=== PATIENT | male | born 1970 | race Caucasian/White ===

== ENCOUNTER 2017-08-09 10:48 | Emergency (ER) | payer OTHER ==
[~2017-08-09] VITALS: Ht 182.9 cm; Wt 79.4 kg
[2017-08-09 10:54] VITALS: BP 144/65
== END 2017-08-09 12:07 | disposition home or self-care (01) ==
LOC: ER 10:49
DX: B02.29 Other postherpetic nervous system involvement (principal)
CPT/HCPCS: 99283; A4606; Z7610

== ENCOUNTER → 2018-04-03 | Emergency (ER) | payer OTHER ==
[~2018-04-03] VITALS: Ht 190.5 cm; Wt 94.8 kg
[~2018-04-03] MED LIST: oxyCODONE/APAP (5/325 MG) 1 UDTAB TABLET ONE; oxyCODONE/APAP (5/325 MG) 1 UDTAB TABLET PO ONE
--- NOTE | 2018-04-03 09:53 | NUR ---
PT ALERT ORINETED X 4 WITH C/C OF HEADACHE IN FRONTAL REGION STARTING YESTERDAY AROUND 10:30 NO NOTED EAKNESS EXHIBITED WILL CONTINUE TO MONITOR
--- NOTE | 2018-04-03 10:18 | NUR ---
PT BACK FROM CT SCAN
[2018-04-03 10:26] VITALS: BP 125/76
--- NOTE | 2018-04-03 10:27 | NUR ---
PT DISCHARGED TO HOME WITH ACI AND PRESCRIPTION
== END | disposition home or self-care (01) ==
LOC: ER 09:42
DX: J06.9 Acute upper respiratory infection, unspecified (principal); R51 Headache
CPT/HCPCS: 70450-TC; A4606; Z7610

== ENCOUNTER 2019-05-09 14:16 | Emergency (ER) | payer OTHER ==
[~2019-05-09] VITALS: Ht 182.9 cm; Wt 93.0 kg
[2019-05-09 14:44] VITALS: BP 134/84
[2019-05-09] MEDS ORDERED: DEXAMETHASONE 4 MG TABLET ONE (15:15)
[2019-05-09] MEDS ORDERED: DEXAMETHASONE 1 MG TABLET PO ONE (15:30)
== END 2019-05-09 15:22 | disposition home or self-care (01) ==
LOC: ER 14:18
DX: J06.9 Acute upper respiratory infection, unspecified (principal)
CPT/HCPCS: 99282; J8540

== ENCOUNTER 2020-08-13 09:43 | Emergency (ER) | payer OTHER ==
[~2020-08-13] VITALS: Ht 177.8 cm; Wt 100.2 kg
--- NOTE | 2020-08-13 09:50 | NUR ---
BIBS FOR C/O PRESSURE TO BOTH EARS, LUE NUMBNESS X TODAY. CONCERN ABOUT B/P HIGH SINCE YESTERDAY. ALERT AND ORIENTED X4. DENIES PAIN. IN ROOM AIR AND DENIES SOB. ATTACHED TO A MONITOR. WILL CONTINUE TO MONITOR THE PATIENT.
[2020-08-13 10:08] LABS: BASOPHILS # (AUTO) 0.1 /CMM (0.0-0.2); BASOPHILS % (AUTO) 0.8 % (0.0-2.0); EOSINOPHILS % (AUTO) 1.6 % (0.0-6.0); HEMATOCRIT 42 % (39-51); HEMOGLOBIN 14.5 g/dL (13.5-17.5); LYMPHOCYTES # (AUTO) 2.1 /CMM (0.8-4.8); LYMPHOCYTES % (AUTO) 32.9 % (20.0-44.0); MEAN CORPUSCULAR HGB CONC 34 g/dl (31.0-36.0); MEAN CORPUSCULAR VOLUME 86 fL (80-96); MONOCYTES # (AUTO) 0.5 /CMM (0.1-1.30); MONOCYTES % (AUTO) 7.2 % (2.0-12.0); NEUTROPHILS # (AUTO) 3.7 /CMM (1.8-8.9); NEUTROPHILS % (AUTO) 57.5 % (43.0-81.0); PLATELET COUNT (AUTO) 256 /CMM (150-450); RED BLOOD CELL COUNT(AUTO) 4.92 MIL/uL (4.5-6.0); WHITE BLOOD COUNT (AUTO) 6.5 K/uL (4.3-11.0)
[2020-08-13 10:16] LABS: CALCIUM, SERUM 8.9 mg/dL (8.5-10.1); CARBON DIOXIDE 26 mmol/L (21-32); CHLORIDE 106 mmol/L (98-107); CREATININE 1.3 mg/dL (0.6-1.3); GLUCOSE 94 mg/dL (74-106); POTASSIUM 3.9 mmol/L (3.5-5.1); SODIUM SERUM 142 mmol/L (136-145); UREA NITROGEN, BLOOD 14 mg/dL (7-18)
--- NOTE | 2020-08-13 10:49 | NUR ---
Patient discharged to home in stable condition. Written and verbal after care instructions given. Patient verbalizes understanding of instruction. The patient left ER in stable condition.
[2020-08-13 10:50] VITALS: BP 133/75
== END 2020-08-13 10:50 | disposition home or self-care (01) ==
LOC: ER 09:44
DX: I10 Essential (primary) hypertension (principal); R51.9 Headache, unspecified
CPT/HCPCS: 36415; 70450-TC; 71045-TC; 80048-TC; 84484-TC; 85025-TC

== ENCOUNTER 2020-08-21 11:24 | Emergency (ER) | payer OTHER ==
[~2020-08-21] VITALS: Ht 188 cm; Wt 97.5 kg
--- NOTE | 2020-08-21 11:30 | NUR ---
patient came in to the er c/o JOCELYNE/elbow, and left rib pain x 2 days s/p playing tennis, took motrin but no relief. on room air, breathing evenly and unlabored. Kept comfortable, will continue to monitor accordingly.
[2020-08-21 12:52] VITALS: BP 118/71
--- NOTE | 2020-08-21 12:52 | NUR ---
Patient discharged to home in stable condition. Written and verbal after care instructions given. Patient verbalizes understanding of instruction.
== END 2020-08-21 12:52 | disposition home or self-care (01) ==
LOC: ER 11:40
DX: S29.012A Strain of muscle and tendon of back wall of thorax, initial encounter (principal); I10 Essential (primary) hypertension; X58.XXXA Exposure to other specified factors, initial encounter; Y93.69 Activity, other involving other sports and athletics played as a team or group; Y92.89 Other specified places as the place of occurrence of the external cause; Y99.8 Other external cause status
CPT/HCPCS: 71100-TC

== ENCOUNTER 2021-01-07 14:21 | Emergency (ER) | payer OTHER ==
[~2021-01-07] VITALS: Ht 190.5 cm; Wt 95.3 kg
--- NOTE | 2021-01-07 14:44 | NUR ---
AT BEDSIDE FOR EVAL.
--- NOTE | 2021-01-07 14:45 | NUR ---
PATIENT HERE FOR C/O CHEST PAIN, NON-RADIATING, PS 6/10 SINCE LAST NIGHT. PATIENT ALERT AND ORIENTED X4. NO RESPIRATORY DISTRESS NOTED. RESPIRATIONS EVEN AND UNLABORED. AWAITING MD CARRANZA
[2021-01-07] MEDS ORDERED: ASPIRIN 325 MG TABLET ONE (15:00)
[2021-01-07] MEDS ORDERED: ASPIRIN 325 MG TABLET PO ONE (15:00)
[2021-01-07 15:09] LABS: EOSINOPHILS % (AUTO) 0.5 % (0.0-6.0); HEMATOCRIT 40 % (39-51); HEMOGLOBIN 13.8 g/dL (13.5-17.5); LYMPHOCYTES # (AUTO) 1.8 K/uL (0.8-4.8); LYMPHOCYTES % (AUTO) 41.8 % (20.0-44.0); MEAN CORPUSCULAR HGB CONC 35 g/dl (31.0-36.0); MEAN CORPUSCULAR VOLUME 87 fL (80-96); MONOCYTES # (AUTO) 0.3 K/uL (0.1-1.30); MONOCYTES % (AUTO) 7.5 % (2.0-12.0); NEUTROPHILS # (AUTO) 2.1 K/uL (1.8-8.9); NEUTROPHILS % (AUTO) 49.2 % (43.0-81.0); PLATELET COUNT (AUTO) 259 K/uL (150-450); RED BLOOD CELL COUNT(AUTO) 4.59 MIL/uL (4.5-6.0); WHITE BLOOD COUNT (AUTO) 4.3 K/uL (4.3-11.0)
[2021-01-07 15:38] LABS: ALANINE AMINOTRANSFERASE 33 U/L (12-78); ALBUMIN 4.2 g/dL (3.4-5.0); ALKALINE PHOSPHATASE 59 U/L (46-116); ASPARTATE AMINOTRANSFERASE 23 U/L (15-37); BILIRUBIN,DIRECT 0.2 mg/dL (0.0-0.2); BILIRUBIN,TOTAL 1.3 mg/dL (0.2-1.0); CALCIUM, SERUM 8.7 mg/dL (8.5-10.1); CARBON DIOXIDE 23 mmol/L (21-32); CHLORIDE 105 mmol/L (98-107); CREATININE 1.2 mg/dL (0.6-1.3); GLUCOSE 93 mg/dL (74-106); POTASSIUM 4.3 mmol/L (3.5-5.1); SODIUM SERUM 139 mmol/L (136-145); TOTAL PROTEIN, SERUM 7.9 g/dL (6.4-8.2); UREA NITROGEN, BLOOD 20 mg/dL (7-18)
--- NOTE | 2021-01-07 18:32 | NUR ---
PATIENT A/OX4, BREATHING EVEN AND UNLABORED, DENIES PAIN AT THIS TIME. IV removed. Catheter intact and site benign. Pressure and 4x4 applied to site. No bleeding noted.Patient discharged to home in stable condition. Written and verbal after care instructions given. Patient verbalizes understanding of instruction.
[2021-01-07 18:33] VITALS: BP 121/73
--- NOTE | 2021-01-07 18:33 | NUR ---
IV removed. Catheter intact and site benign. Pressure and 4x4 applied to site. No bleeding noted. Patient discharged to home in stable condition. Written and verbal after care instructions given. Patient verbalizes understanding of instruction.
== END 2021-01-07 18:33 | disposition home or self-care (01) ==
LOC: ER 14:25
DX: R07.89 Other chest pain (principal); I10 Essential (primary) hypertension; E78.5 Hyperlipidemia, unspecified
CPT/HCPCS: 36415; 71045-TC; 80048-TC; 80076-TC; 83880; 84484-TC; 85025-TC

== ENCOUNTER 2021-04-13 22:49 | Emergency (ER) | payer OTHER ==
[~2021-04-13] VITALS: Ht 190.5 cm; Wt 95.7 kg
[2021-04-13 23:02] VITALS: BP 161/87
--- NOTE | 2021-04-13 23:15 | NUR ---
PT REFUSING CARDIAC WORKUP. REFUSING CHEST XRAY AND EKG. ER MD AWARE.
[2021-04-13] MEDS ORDERED: DEXAMETHASONE 1 MG TABLET ONE (23:52)
[2021-04-13] MEDS ORDERED: DEXAMETHASONE 4 MG TABLET ONE (23:53)
[2021-04-14] MEDS ORDERED: DEXAMETHASONE SOLN 5 MG/5 ML UDC PO ONE
== END 2021-04-13 23:58 | disposition home or self-care (01) ==
LOC: ER 22:54
DX: R07.89 Other chest pain (principal); R05.9 Cough, unspecified; I10 Essential (primary) hypertension
CPT/HCPCS: 99283; J8540 ×2

== ENCOUNTER 2022-07-04 13:49 | Emergency (ER) | payer OTHER ==
[~2022-07-04] VITALS: Ht 188 cm; Wt 97.1 kg
--- NOTE | 2022-07-04 14:00 | NUR ---
for 2 day no n/v noted received pt 52 yrs male came from home c/o epgastic pain
--- NOTE | 2022-07-04 14:15 | NUR ---
BLood DROW BY LAB tach
[2022-07-04 14:29] LABS: BASOPHILS % (AUTO) 0.8 % (0.0-2.0); EOSINOPHILS % (AUTO) 1.2 % (0.0-6.0); HEMATOCRIT 41 % (39-51); HEMOGLOBIN 13.9 g/dL (13.5-17.5); LYMPHOCYTES # (AUTO) 1.7 K/uL (0.8-4.8); LYMPHOCYTES % (AUTO) 39.5 % (20.0-44.0); MEAN CORPUSCULAR HGB CONC 34 g/dl (31.0-36.0); MEAN CORPUSCULAR VOLUME 86 fL (80-96); MONOCYTES # (AUTO) 0.4 K/uL (0.1-1.30); MONOCYTES % (AUTO) 8.3 % (2.0-12.0); NEUTROPHILS # (AUTO) 2.1 K/uL (1.8-8.9); NEUTROPHILS % (AUTO) 50.2 % (43.0-81.0); PLATELET COUNT (AUTO) 285 K/uL (150-450); RED BLOOD CELL COUNT(AUTO) 4.79 MIL/uL (4.5-6.0); WHITE BLOOD COUNT (AUTO) 4.3 K/uL (4.3-11.0)
--- NOTE | 2022-07-04 14:50 | NUR ---
TO ct scan OF ABDOMINE
[2022-07-04 14:55] LABS: CREATININE 1.1 mg/dL (0.6-1.3); POTASSIUM 4.5 mmol/L (3.5-5.1)
[2022-07-04 15:01] LABS: ALBUMIN 4.3 g/dL (3.4-5.0); BILIRUBIN,DIRECT 0.2 mg/dL (0.0-0.2); BILIRUBIN,TOTAL 1.2 mg/dL (0.2-1.0); TOTAL PROTEIN, SERUM 7.7 g/dL (6.4-8.2)
[2022-07-04] MEDS ORDERED: IBUP-1955 PO (15:42)
--- NOTE | 2022-07-04 15:45 | NUR ---
ABDOMINALE PAIN MULESES PAIN DINESES N/C
--- NOTE | 2022-07-04 15:47 | NUR ---
Patient discharged to home in stable condition. Written and verbal after care instructions given. Patient verbalizes understanding of instruction.
[2022-07-04 15:50] VITALS: BP 133/85
== END 2022-07-04 15:51 | disposition home or self-care (01) ==
LOC: ER 13:52
DX: R10.33 Periumbilical pain (principal); I10 Essential (primary) hypertension; E78.5 Hyperlipidemia, unspecified; Z79.899 Other long term (current) drug therapy
CPT/HCPCS: 36415; 80048-TC; 80076-TC; 83690-TC; 85025-TC